=== PATIENT | female | born 1930 ===

== ENCOUNTER 2017-05-28 02:20 | Emergency (ER) | payer MEDICARE, BC, MEDICAID ==
--- NOTE | 2017-05-28 05:12 | ER ---
Date of Service: 05/28/2017 SUBJECTIVE: Allyson presents to the emergency room with complaints of left hip pain according to staff. Staff stated that they found the patient lying on the floor outside of her bed at the [facility]. The patient at that time was complaining of left hip pain. EMS was summoned. On their arrival, the patient was not experiencing any complaints of discomfort in the hip. She subsequently was transported here to [facility]. The patient has a history of severe dementia and is unable to communicate, speaking incoherently. PAST MEDICAL HISTORY: 1. Dementia. 2. Frequent falls. 3. Hypothyroidism. 4. Depression. 5. Anxiety. 6. Hypertension. MEDICATIONS: Please see nurse's notes. ALLERGIES: Influenza vaccine. REVIEW OF SYSTEMS: Unobtainable. PHYSICAL EXAMINATION: General: This is an 87-year-old female patient, in no acute distress. Vital Signs: Blood pressure is 153/79, pulse rate is 73, temperature is 36.5, respiratory rate is 16, and O2 saturations 95%. Skin: Warm, pink, and dry. HEENT: Head is normocephalic and atraumatic. Chest: No chest wall trauma. Lungs: Clear to auscultation. Heart: Regular rate and rhythm. Abdomen: Soft, nontender. There is no hepatosplenomegaly or masses noted. Pelvis: Stable. No crepitus or deformity noted to either of her hips. RADIOGRAPHIC DATA: Radiographs of the patient's pelvis were obtained and did not reveal any acute fracture or dislocation of the pelvis or hips. ASSESSMENT: Fall with resolved left hip pain. PLAN: The patient will be discharged. She is unable to follow commands and has difficulties sitting, so [facility]. We will have her followup in clinic in the next 7 to 10 days if continuing to have discomfort. All questions were answered. MWK: 05/28/2017 04:39:02 MODL: 05/28/2017 05:03:50 /[id number]
== END 2017-05-28 04:45 ==
LOC: VM.ED 02:20
DX: M25.552 Pain in left hip (principal); I10 Essential (primary) hypertension; E03.9 Hypothyroidism, unspecified; W19.XXXA Unspecified fall, initial encounter
CPT/HCPCS: 72170; 99282-GF; 99285